=== PATIENT | male | born 1985 | race Caucasian/White ===

== ENCOUNTER 2020-01-03 08:09 | Emergency (ER) | payer MEDICAID, OTHER ==
[~2020-01-03] VITALS: Ht 15.2 cm; Wt 124.7 kg
[2020-01-03 08:25] VITALS: BP 142/86
[2020-01-03] MEDS ORDERED: KETOROLAC TROMETH 30 MG/ML 1ML VIAL IV ONE (09:00)
[2020-01-03] MEDS ORDERED: cefTRIAXone 1GM/50ML D5W 50 ML IV ONE (09:00)
== END 2020-01-03 09:47 | disposition home or self-care (01) ==
LOC: ER 08:09
DX: S90.911A Unspecified superficial injury of right ankle, initial encounter (principal); L03.115 Cellulitis of right lower limb; X58.XXXA Exposure to other specified factors, initial encounter; Y93.89 Activity, other specified; Y92.89 Other specified places as the place of occurrence of the external cause; Y99.8 Other external cause status
CPT/HCPCS: 96365; 96375; 99284; J0696; J1885

== ENCOUNTER 2020-01-12 10:23 | Emergency (ER) | payer MEDICAID ==
[~2020-01-12] VITALS: Ht 190.5 cm; Wt 127.0 kg
[2020-01-12 10:38] VITALS: BP 143/90
== END 2020-01-12 11:11 | disposition home or self-care (01) ==
LOC: ER 10:23
DX: Z48.01 Encounter for change or removal of surgical wound dressing (principal); Z76.0 Encounter for issue of repeat prescription